=== PATIENT | female | born 1990 | race Caucasian/White ===

== ENCOUNTER 2017-03-27 17:52 | Emergency (ER) | payer BC ==
[~2017-03-27] VITALS: Ht 167.6 cm; Wt 95.9 kg
[~2017-03-27 17:52] MED LIST: AVIANE 0.02 MG-1 TAB PO; CANASA1000 MG RC; CANASA500 MG RC; CELEXA40 MG PO; FERROUS SULFATE65 MG PO; FLAGYL250 MG PO; FOLIC ACID 11 MG/TA1 PO; HUMIRA40 MG/0.1 SC; IMITREX100 MG PO; KLOR-CON M2020 MEQ PO; NEURONTIN300 MG/CAP PO; NUVARING1 ICR VG; PERCR 7.5 PO; PHENERGAN 25 TA25 MG PO; PREDNISONE20 MG PO; PRILOSEC 20MG20 MG PO; SPRINTEC 35 MCG1 TAB PO; SULFAZINE500 MG PO; TOPAMAX 25MG25 M1 PO; TOPAMAX50 MG PO; VITAMIN B12100 MCG PO; ZOFRAN8 MG PO; ZYRTEC 10MG10 MG PO
[2017-03-27 17:59] VITALS: TEMP 98.9
[2017-03-27 18:38] LABS: BASO % 0.3 % (0.0-2.0); EOS # 0.1 (0.0-0.7); EOS % 0.9 % (0-4.0); GRAN # 7.4 (1.4-6.5); GRAN % 63.1 % (42.2-75.2); HEMATOCRIT 43.7 % (37.0-47.0); HEMOGLOBIN 15.1 g/dl (12.5-16.0); LYMPH # 3.4 (1.2-3.4); LYMPH % 29.4 % (20.0-51.0); MEAN CELL VOLUME 86 fl (80.0-100.0); MEAN CORPUSCULAR HEMOGLOBIN 30 pg (27.0-31.0); MEAN CORPUSCULAR HGB CONC 35 g/dl (33.0-37.0); MEAN PLATELET VOLUME 9.3 fl (7.4-10.4); MONO # 0.7 (0.1-0.6); PLATELET COUNT 302 K/mm3 (130-400); RED BLOOD COUNT 5.08 M/mm3 (4.10-5.30); REDCELL DISTRIBUTION WIDTH-CV 12.4 % (11.5-14.5); WHITE BLOOD COUNT 11.7 K/mm3 (4.8-10.8)
[2017-03-27] MEDS ORDERED: CELEXA 20MG20 MG/TAB PO (18:43)
[2017-03-27] MEDS ORDERED: DESYREL 100MG100 MG PO (18:44)
[2017-03-27] MEDS ORDERED: IMURAN 50MG TAB50 MG PO (18:45)
[2017-03-27] MEDS ORDERED: FLOVENT DI50 MCG/Act IH (18:45)
[2017-03-27] MEDS ORDERED: NEXIUM 40MG40 MG PO (18:46)
[2017-03-27 18:52] LABS: ADJUSTED CALCIUM 9.4 mg/dL (8.4-10.2); ALBUMIN 4.4 gm/dL (3.5-5.0); BILIRUBIN,TOTAL 0.7 mg/dL (0.0-1.0); CALCIUM 9.7 mg/dL (8.4-10.2); CREATININE, serum 0.92 mg/dL (0.52-1.25); POTASSIUM 3.7 mmol/L (3.4-5.0); TOTAL PROTEIN 8.2 gm/dL (6.4-8.2)
[2017-03-27 19:18] LABS: URINE COLOR Straw
[2017-03-27 19:19] LABS: PH 6 (5-8); URINE APPEARANCE Hazy
[2017-03-27 19:20] LABS: URINE BILIRUBIN Negative (NEGATIVE); URINE BLOOD Negative (NEGATIVE); URINE GLUCOSE Negative (NEGATIVE); URINE KETONE Negative (NEGATIVE); URINE RBC 0-2 /hpf; URINE UROBILINOGEN Negative (NEGATIVE)
[2017-03-27 19:21] LABS: URINE BACTERIA Occasional /hpf
[2017-03-27 20:07] VITALS: BP 102/56; PULSE 84
[2017-03-27] MEDS ORDERED: NORCO 325 MG-51 TAB PO (20:07)
[2017-03-27] MEDS ORDERED: PREDNISONE20 MG PO (20:07)
== END 2017-03-27 20:49 | disposition home or self-care (01) ==
LOC: COL.ER 17:52
PROVIDERS: Emergency Medicine
DX: K50.90 Crohn's disease, unspecified, without complications (principal); Z90.49 Acquired absence of other specified parts of digestive tract; Z98.890 Other specified postprocedural states
CPT/HCPCS: J2270; J2405; J2550; J2930; J7030; Q9967

== ENCOUNTER → 2017-07-28 | Outpatient (CLI) | payer BC ==
[~2017-07-28] MED LIST changes: +CELEXA 20MG20 MG/TAB PO; +DESYREL 100MG100 MG PO; +FLOVENT DI50 MCG/Act IH; +IMURAN 50MG TAB50 MG PO; +NEXIUM 40MG40 MG PO; +NORCO 325 MG-51 TAB PO
== END ==
LOC: COL.RAD 10:12
DX: D17.1 Benign lipomatous neoplasm of skin and subcutaneous tissue of trunk (principal)

== ENCOUNTER 2017-09-07 09:52 | Emergency (ER) | payer BC ==
[~2017-09-07] VITALS: Ht 165.1 cm; Wt 102.3 kg
[2017-09-07 09:58] VITALS: TEMP 97.4
[2017-09-07] MEDS ORDERED: PROTONIX 40MG T40 MG PO (10:42)
[2017-09-07] MEDS ORDERED: CELEXA40 MG PO (10:43)
[2017-09-07] MEDS ORDERED: TOPAMAX50 MG PO (10:43)
[2017-09-07] MEDS ORDERED: FOLIC ACID 11 MG/TA1 PO (10:43)
[2017-09-07] MEDS ORDERED: AZASAN100 MG (10:44)
[2017-09-07] MEDS ORDERED: ENTOCORT EC3 MG PO (10:45)
[2017-09-07] MEDS ORDERED: VITAMIN B COMPL1 T16 PO (10:46)
[2017-09-07] MEDS ORDERED: SEROQUEL50 MG PO (10:47)
[2017-09-07] MEDS ORDERED: HUMIRA40 MG/0.8 SQ (10:48)
[2017-09-07] MEDS ORDERED: NUVARING VAG RING VG (10:48)
[2017-09-07 11:02] LABS: COLLECTION METHOD CLEAN CATCH
[2017-09-07 11:13] LABS: MUCOUS Present /lpf; PH 6 (5-8); SQUAMOUS EPITHELIAL 20-50 /hpf; URINE APPEARANCE Cloudy; URINE BACTERIA Rare /hpf; URINE BILIRUBIN Negative (NEGATIVE); URINE BLOOD 3+ (NEGATIVE); URINE COLOR Amber; URINE GLUCOSE Negative (NEGATIVE); URINE KETONE Negative (NEGATIVE); URINE LEUKOCYTE ESTERASE Trace (NEGATIVE); URINE NITRATE Negative (NEGATIVE); URINE PROTEIN(semi-quant) 2+ (NEGATIVE); URINE UROBILINOGEN Negative (NEGATIVE)
[2017-09-07 11:59] LABS: ALANINE AMINOTRANSFERASE 25 U/L (9-52); ALBUMIN 4.8 gm/dL (3.5-5.0); ALKALINE PHOSPHATASE 76 U/L (50-136); ANION GAP 14 mmol/L (7-16); AST,SGOT 26 U/L (15-37); BILIRUBIN,TOTAL 0.7 mg/dL (0.0-1.0); BLOOD UREA NITROGEN 15 mg/dL (7-17); CALCIUM 9.8 mg/dL (8.4-10.2); CARBON DIOXIDE 19 mmol/L (22-30); CHLORIDE 106 mmol/L (98-107); CREATININE, serum 0.81 mg/dL (0.52-1.25); GLUCOSE 126 mg/dL (74-106); POTASSIUM 3.6 mmol/L (3.4-5.0); SODIUM 140 mmol/L (137-145); TOTAL PROTEIN 8.4 gm/dL (6.4-8.2)
[2017-09-07 12:01] LABS: C-REACTIVE PROTEIN < 0.5 mg/dL (0.0-0.9)
[2017-09-07 12:07] LABS: BASO # 0.1 (0.0-0.2); BASO % 0.3 % (0.0-2.0); GRAN # 15.5 (1.4-6.5); HEMATOCRIT 48.3 % (37.0-47.0); HEMOGLOBIN 16.9 g/dl (12.5-16.0); LYMPH # 1.8 (1.2-3.4); LYMPH % 9.6 % (20.0-51.0); MEAN CELL VOLUME 87 fl (80.0-100.0); MEAN CORPUSCULAR HEMOGLOBIN 31 pg (27.0-31.0); MEAN CORPUSCULAR HGB CONC 35 g/dl (33.0-37.0); MEAN PLATELET VOLUME 9.7 fl (7.4-10.4); MONO # 1.2 (0.1-0.6); MONO % 6.6 % (1.7-9.3); PLATELET COUNT 311 K/mm3 (130-400); RED BLOOD COUNT 5.55 M/mm3 (4.10-5.30); REDCELL DISTRIBUTION WIDTH-CV 13.1 % (11.5-14.5)
[2017-09-07 13:02] LABS: COLLECTION METHOD CATHETER
[2017-09-07 13:13] LABS: MUCOUS Present /lpf; PH 5 (5-8); SQUAMOUS EPITHELIAL None Seen /hpf; URINE APPEARANCE Turbid; URINE BACTERIA Rare /hpf; URINE BILIRUBIN Negative (NEGATIVE); URINE BLOOD Negative (NEGATIVE); URINE CALCIUM OXALATE CRYSTAL Present /hpf; URINE COLOR Yellow; URINE GLUCOSE Negative (NEGATIVE); URINE KETONE Negative (NEGATIVE); URINE LEUKOCYTE ESTERASE Negative (NEGATIVE); URINE NITRATE Negative (NEGATIVE); URINE PROTEIN(semi-quant) 1+ (NEGATIVE); URINE RBC 0-2 /hpf; URINE UROBILINOGEN Negative (NEGATIVE)
[2017-09-07] MEDS ORDERED: PREDNISONE20 MG PO (14:25)
[2017-09-07] MEDS ORDERED: NORCO 325 MG-51 TAB PO (14:26)
[2017-09-07 14:33] VITALS: BP 126/79; PULSE 101
== END 2017-09-07 14:46 | disposition home or self-care (01) ==
LOC: COL.ER 09:52
PROVIDERS: Nurse Practitioner
DX: R10.84 Generalized abdominal pain (principal); R11.2 Nausea with vomiting, unspecified; K50.90 Crohn's disease, unspecified, without complications; Z90.49 Acquired absence of other specified parts of digestive tract; Z98.890 Other specified postprocedural states
CPT/HCPCS: J1170; J2405; J7030